=== PATIENT | female | born 1995 | race Caucasian/White ===

== ENCOUNTER 2020-05-19 17:48 | Emergency (ER) | payer BC, SELFPAY ==
--- NOTE | 2020-05-19 17:44 | ECG_ITS ---
APPROVED REPORT Exam: Resting ECG HR:60 bpm ECG Measurements Heart Rate 60 AXES WA 124 P 23 QRSd 78 QRS 42 QT 422 T 54 QTc 422 <Conclusion> Normal sinus rhythm Septal infarct, age undetermined Abnormal ECG Electronically signed by : Bert Keller, 05/21/2020 07:13:59
[2020-05-19 17:48] VITALS: BP 122/91; PULSE 64; RESP 18; TEMP 37.1; O2SAT 99; BMI 25.7
--- NOTE | 2020-05-19 18:02 | XR_ITS ---
PROCEDURE: XR CHEST 2V CLINICAL HISTORY: chest pain Chest pain and shortness of air COMPARISON: No exams were available for comparison FINDINGS: The cardiomediastinal silhouette and pulmonary vascularity are within normal limits. The lungs are clear without infiltrates, suspicious nodules, or pleural effusions. There is a calcified granuloma in the left upper lobe. No acute bony findings IMPRESSION: No acute findings. Dictated by: Ranjit Vincent MD 05/19/2020 21:54 Ranjit Vincent MD in [place] 05/19/2020 21:54
[2020-05-19 18:09] LABS: Basophils # 0.1 K/mm3 (0-0.2); Basophils % 0.5 % (0.1-2.0); Eosinophils # 0.1 K/mm3 (0.0-0.4); Eosinophils % 1.3 % (0.1-12.0); Hematocrit 43.4 % (37.0-47.0); Hemoglobin 14.9 g/dL (12.2-16.2); Lymphocytes # 3.8 K/mm3 (0.7-4.5); Mean Corpuscular HGB Conc 34.4 g/dL (31.8-35.4); Mean Corpuscular Hemoglobin 30.2 pg (27.0-31.2); Mean Corpuscular Volume 87.9 fl (81-99); Mean Platelet Volume 7.9 fl (7.4-10.4); Monocytes # 0.5 K/mm3 (0.1-1.0); Neutrophils # 6.3 K/mm3 (1.8-7.8); Neutrophils % 58.2 % (37.0-80.0); Platelet Count 232 K/mm3 (142-424); Red Blood Count 4.94 M/mm3 (4.20-5.40); Red Cell Distribution Width 12.3 % (11.5-17.5); White Blood Count 10.8 K/mm3 (4.8-10.8)
[2020-05-19 18:10] LABS: Chloride 103 mmol/L (98-107); Potassium 3.7 mmoL/L (3.5-5.1); Sodium 140 mmol/L (136-145)
--- NOTE | 2020-05-19 18:12 | [facility].EDCP ---
ED Disposition Clinical Impression: Atypical chest pain Disposition: Home, Self-Care Condition on Discharge: Fair Instructions: DI for Atypical Chest Pain Additional Instructions: We have checked your EKG and it shows no acute findings CBC showed no acute findings CMP showed no abnormal labs; Cardiac specific troponin was negative, d-dimer (which would indicate pulmonary embolism) was negative, chest x-ray was also negative. Overall we did not find any findings of concern at this time; However please follow-up as needed if symptoms persist. Referrals: PCP,No [Primary Care Provider] - Time of Disposition: 19:39 - Critical Care Critical Care Time: No Attestation: On 05/19/20, the high probability of a clinically significant, sudden or life threatening deterioration of the following system(s) required my full and direct attention, intervention and personal management. The time I documented below is in addition to time spent performing reported procedures but includes the following listed in this critical care notation. Medical Decision Making - Medical Records Medical records reviewed: Yes: I reviewed the patient's medical records. MR Comment: Pt c/o chest pain for 3-4 days, pt also reports SOA associated with the chest pain. Pt also reports fatigue. Pt states she woke up with squeezing type chest pain 3-4 days ago and pain as continued to get worse. We have checked the patient's EKG and it shows no acute findings CBC showed no acute findings CMP showed no abnormal labs troponin was negative d-dimer was negative chest x-ray was also negative. Advised patient that we did not find any findings of concern at this time; advised to follow-up as needed but at this point nothing needs to be done - [facility] Inquiry Pt receiving controlled substance: No Vital Signs: 05/19/20 17:48 05/19/20 18:31 05/19/20 19:25 Temperature 98.7 F Temperature Source Oral Pulse Rate [Right Radial] 64 61 66 Respiratory Rate 18 Blood Pressure [Right Arm] 122/91 H 106/74 L 110/77 Blood Pressure Mean [Right Arm] 101 84 88 Blood Pressure Source [Right Arm] Automatic Cuff Automatic Cuff Automatic Cuff Blood Pressure Position [Right Arm] Sitting Sitting 02 Sat by Pulse Oximetry 99 99 95 Oxygen Delivery Method Room Air Room Air Room Air - Lab Data Lab Results 05/19/20 17:55: WBC 10.8, RBC 4.94, Hgb 14.9, Hct 43.4, MCV 87.9, MCH 30.2, MCHC 34.4, RDW 12.3, Plt Count 232, MPV 7.9, Neut % (Auto) 58.2, Lymph % (Auto) 35.0, [place] % (Auto) 5.0, Eos % (Auto) 1.3, Baso % (Auto) 0.5, Neut # (Auto) 6.3, Lymph # (Auto) 3.8, [place] # (Auto) 0.5, Eos # (Auto) 0.1, Baso # (Auto) 0.1 05/19/20 17:55: Sodium 140, Potassium 3.7, Chloride 103, Carbon Dioxide 27, Anion Gap 13.7, BUN 14, Creatinine 0.80, Estimated Creat Clear 111, Estimated GFR 87, Est GFR ( Amer) 105, Glucose 91, Calcium 9.6, Troponin I < 0.01 05/19/20 17:55: D-Dimer < 100 Result diagrams: 05/19/20 17:55 05/19/20 17:55 Orders (Tests/Meds): ED MEDICATIONS Discontinued Medications Generic Name Dose Route Start Last Admin Trade Name Freq PRN Reason Stop Dose Admin Aspirin 324 mg 05/19/20 18:24 05/19/20 18:26 Aspirin 81mg Chewable Tablet PO 05/19/20 18:25 324 mg ONCE ONE Administration ORDERS Category Date Time Status Chest XR 2 view (NOT portable) [XR chest 2V] Stat Exams 05/19/20 18:02 Taken Influenza A&B Antigens, Rapid [Rapid Influenza A&B Lab 05/19/20 18:24 Ordered Antigens] Stat Troponin I Q3H Lab 05/19/20 21:15 Ordered Troponin I Q3H Lab 05/20/20 00:15 Ordered Chest Pain HPI - General Chief Complaint: Chest Pain Stated Complaint: chest pain Time Seen by Provider: 05/19/20 18:12 Mode of Arrival: Ambulatory Limitations: No Limitations Description of Symptoms (Recalled from ER Triage Doc. by RN): Pt c/o chest pain for 3-4 days, pt also reports SOA associated with the chest pain. Pt also reports fatigue. Pt states she woke up with squeezi
[2020-05-19 18:13] LABS: Anion Gap 13.7 mEq/L (5-15); Blood Urea Nitrogen 14 mg/dl (7-17); Calcium 9.6 mg/dl (8.4-10.2); Carbon Dioxide 27 mmol/L (22.0-30.0); Creatinine Clearance Estimated 111 mL/min (50-200); Estimated Glomerular Filt Rate 87 ml/min (>60); GFR (African American) 105 ML/MIN (>60); Glucose 91 mg/dl (74-100)
[2020-05-19 18:26] LABS: Troponin I < 0.01 ng/ml (0.00-0.034)
[2020-05-19 18:31] VITALS: BP 106/74; PULSE 61; O2SAT 99
[2020-05-19 19:16] LABS: D-Dimer < 100 ng/mL (0-400)
[2020-05-19 19:25] VITALS: BP 110/77; PULSE 66; O2SAT 95
[2020-05-19 19:59] VITALS: BP 111/74; PULSE 73; RESP 16; TEMP 37; O2SAT 99
== END 2020-05-19 20:01 | disposition home or self-care (01) ==
PROVIDERS: Emergency Provider Emergency Medicine
DX: R07.89 Other chest pain (principal); R06.02 Shortness of breath; R53.81 Other malaise
CPT/HCPCS: 71046; 80048; 84484; 85025; 85378; 93005; 99284